=== PATIENT | female | born 1990 | race Caucasian/White ===

== ENCOUNTER → 2024-11-08 11:30 | Outpatient (CLI) | payer BC, SELFPAY ==
[2024-11-08 12:43] LABS: Add Manual Diff / Slide Review NO; Basophils Absolute Auto 0 /uL (0-100); Basophils Percent Auto 0.3 % (0-2); Eosinophils Absolute Auto 100 /uL (0-450); Eosinophils Percent Auto 1.3 % (2-4); Hematocrit 30.9 % (36-46); Hemoglobin 9.8 g/dL (12.0-16.0); Lymphocytes Absolute Auto 1800 /uL (1100-4500); Lymphocytes Percent Auto 21.1 % (25-40); Mean Corpuscular HGB Conc 31.6 % (30-36); Mean Corpuscular Hemoglobin 22.5 PG (26-34); Mean Corpuscular Volume 71.2 fL (80-100); Monocytes Absolute Auto 400 /uL (0-900); Monocytes Percent Auto 4.4 % (3-14); Neutrophils Absolute Auto 6100 /uL (1500-7000); Neutrophils Percent Auto 72.9 % (50-75); Platelet Count 328 X10^3/uL (150-400); Red Blood Cell Count 4.34 X10^6/uL (4.0-5.2); Red Cell Distribution Width 17.1 % (11.6-14.8); White Blood Cell Count 8.4 X10^3/uL (4.5-11.0)
[2024-11-08 12:55] LABS: Hemoglobin A1C% w Est Avg Glu 5.3 % (4.0-6.0)
[2024-11-08 13:05] LABS: HEMOLYSIS < 15 (0-50); Iron 24 ug/dL (37-170)
[2024-11-08 13:07] LABS: Alanine Aminotransferase 48 IU/L (<35); Albumin 4.3 g/dL (3.5-5.0); Albumin Globulin Ratio 1.2 (1.0-2.8); Alkaline Phosphatase 124 U/L (38-126); Aspartate Aminotransferase 44 IU/L (14-36); BUN Creatinine Ratio 13.6 (6-22); Bilirubin Total 0.3 mg/dL (0.2-1.3); Blood Urea Nitrogen 6 mg/dL (7-17); Calcium 8.9 mg/dL (8.4-10.2); Carbon Dioxide 25 mmol/L (22-32); Chloride 107 mmol/L (98-107); Cholesterol 148 mg/dL (140-199); Estimated Glomerular Filt Rate > 60 mL/min (>60); Globulin 3.7 g/dL (1.7-4.1); Glucose 84 mg/dL (70-100); HDL Cholesterol 37 mg/dL (40-60); HEMOLYSIS < 15 (0-50); LDL Cholesterol Calculated 97 mg/dL (<100); Sodium 140 mmol/L (137-145); Triglycerides 68 mg/dL (35-150)
[2024-11-08 13:19] LABS: Percent Iron Saturation 6 % (15-50); Total Iron Binding Capacity 424 ug/dL (265-497); Transferrin 401 mg/dL (206-381)
[2024-11-08 13:38] LABS: TSH w/ Reflex to FT4 1.53 uIU/mL (0.47-4.68)
[2024-11-08 13:40] LABS: Ferritin 4 ng/mL (6-137)
[2024-11-08 13:57] LABS: Vitamin B12 712 pg/mL (239-931)
[2024-11-08 14:09] LABS: Vitamin D 25 Hydroxy (D3) 15.9 ng/mL (30.0-100.0)
[2024-11-09 18:08] LABS: Folate, RBC 883 ng/mL (>498); Hematocrit 32.4 % (34.0-46.6); Hemolysate 286.2 ng/mL (Not Estab.)
== END ==
PROVIDERS: PCP Family Medicine; Referring Provider Family Medicine; Visit Provider Family Medicine
DX: E66.9 Obesity, unspecified (principal); Z98.84 Bariatric surgery status; R53.83 Other fatigue
CPT/HCPCS: 36415; 80053; 80061; 82306; 82607; 82728; 82747; 83036; 83540; 83550; 84443; 85014; 85025

== ENCOUNTER → 2025-01-20 16:08 | Outpatient (CLI) | payer OTHER, SELFPAY ==
[2025-01-20 17:05] LABS: Add Manual Diff / Slide Review NO; Basophils Absolute Auto 0 /uL (0-100); Basophils Percent Auto 0.2 % (0-2); Eosinophils Absolute Auto 100 /uL (0-450); Hematocrit 38.3 % (36-46); Hemoglobin 12.6 g/dL (12.0-16.0); Lymphocytes Absolute Auto 2200 /uL (1100-4500); Lymphocytes Percent Auto 25.7 % (25-40); Mean Corpuscular HGB Conc 32.9 % (30-36); Mean Corpuscular Hemoglobin 26.8 PG (26-34); Mean Corpuscular Volume 81.5 fL (80-100); Monocytes Absolute Auto 600 /uL (0-900); Monocytes Percent Auto 6.6 % (3-14); Neutrophils Absolute Auto 5800 /uL (1500-7000); Neutrophils Percent Auto 66.5 % (50-75); Platelet Count 248 X10^3/uL (150-400); Red Cell Distribution Width 21.9 % (11.6-14.8); White Blood Cell Count 8.7 X10^3/uL (4.5-11.0)
[2025-01-20 17:22] LABS: Anisocytosis 3+
[2025-01-20 17:25] LABS: HEMOLYSIS < 15 (0-50); Iron 44 ug/dL (37-170)
[2025-01-20 17:26] LABS: Alanine Aminotransferase 23 IU/L (<35); Albumin 4.3 g/dL (3.5-5.0); Albumin Globulin Ratio 1.3 (1.0-2.8); Alkaline Phosphatase 97 U/L (38-126); Aspartate Aminotransferase 27 IU/L (14-36); BUN Creatinine Ratio 21.3 (6-22); Bilirubin Total 0.3 mg/dL (0.2-1.3); Blood Urea Nitrogen 13 mg/dL (7-17); Calcium 8.8 mg/dL (8.4-10.2); Carbon Dioxide 25 mmol/L (22-32); Chloride 104 mmol/L (98-107); Estimated Glomerular Filt Rate > 60 mL/min (>60); Globulin 3.3 g/dL (1.7-4.1); Glucose 95 mg/dL (70-99); HEMOLYSIS < 15 (0-50); Potassium 4.2 mmol/L (3.4-5.1); Sodium 137 mmol/L (137-145); Total Protein 7.6 g/dL (6.3-8.2)
[2025-01-20 17:36] LABS: Percent Iron Saturation 12 % (15-50); Total Iron Binding Capacity 359 ug/dL (265-497); Transferrin 299 mg/dL (206-381)
[2025-01-20 17:47] LABS: Vitamin D 25 Hydroxy (D3) 28.1 ng/mL (30.0-100.0)
== END ==
PROVIDERS: PCP Family Medicine; Referring Provider Family Medicine; Visit Provider Family Medicine
DX: R63.5 Abnormal weight gain (principal); D64.9 Anemia, unspecified
CPT/HCPCS: 36415; 80053; 82306; 83540; 83550; 85025